=== PATIENT | female | born 1955 | race African-American/Black ===

== ENCOUNTER 2018-11-21 09:22 | Day surgery (SDC) | payer BC ==
[2018-11-20 13:47] VITALS: BMI 24.3
[2018-11-21 11:06] VITALS: TEMP 97.7
[2018-11-21 12:22] VITALS: BP 124/89; PULSE 53
--- NOTE | 2018-11-22 09:45 | PATH ---
Surgical Pathology Report Patient Name: LOLI PAPPAS [facility] Rec. #: [id number] /Age/Gender: 1955 (Age: 63) / F Account: [id number] Location: [facility]-ENDOSCOPY Taken: 11/21/2018 Received: 11/21/2018 Reported: 11/22/2018 Physicians: Alexandra Senior M.D. Specimen(s) Received A: DUODENUM B: GASTRIC ULCER BIOPSY C: GASTRIC FUNDUS POLYP D: ANTRUM E: RECTUM POLYP Clinical History Family history of gastric cancer, screening, constipation Postoperative diagnosis: Gastric ulcer, gastric fundic polyp, hiatal hernia, rectal polyp Final Diagnosis A. DUODENUM, SECOND PORTION AND BULB, BIOPSY: DUODENAL MUCOSA WITH NO PATHOLOGIC CHANGES. NO HISTOLOGIC EVIDENCE OF GLUTEN SENSITIVE ENTEROPATHY (CELIAC SPRUE) IDENTIFIED. B. STOMACH, GASTRIC ULCER, BIOPSY: MILD REACTIVE GASTROPATHY. IMMUNOSTAIN FOR H. PYLORI IS NEGATIVE. C. STOMACH, FUNDUS, BIOPSY: GASTRIC FUNDIC MUCOSA WITH NO PATHOLOGIC CHANGES. IMMUNOSTAIN FOR H. PYLORI IS NEGATIVE. D. STOMACH, ANTRUM, BIOPSY: GASTRIC ANTRAL AND FUNDIC MUCOSA WITH FOCAL MILD CHRONIC GASTRITIS. IMMUNOSTAIN FOR H. PYLORI IS NEGATIVE. E. COLON, RECTUM, BIOPSY: HYPERPLASTIC POLYP Electronically Signed Ted Hendrickson M.D. Gross Description A. Received in formalin, labeled "second portion and bulb of duodenum" are 3 brown, irregular portions of soft tissue ranging from 0.3-0.5 cm. in greatest dimension. The specimens are submitted in toto in one cassette. B. Received in formalin, labeled "gastric ulcer biopsy" are 3 brown, irregular portions of soft tissue averaging 0.3 cm. in greatest dimension. The specimens are submitted in toto in one cassette. C. Received in formalin, labeled "gastric fundus polyp biopsy" is a brown, irregular portion of soft tissue measuring 0.3 cm. in greatest dimension. The specimen is submitted in toto in one cassette. D. Received in formalin, labeled "antrum biopsy" are 2 brown, irregular portions of soft tissue measuring 0.2 and 0.6 cm. in greatest dimension. The specimens are submitted in toto in one cassette. E. Received in formalin, labeled "rectum polyp biopsy" is a brown, irregular portion of soft tissue measuring 0.6 cm. in greatest dimension. The specimen is submitted in toto in one cassette. 11/21/2018 [facility]11/21/2018
== END 2018-11-21 13:30 | disposition home or self-care (01) ==
LOC: JASU-ENDO 09:22
PROVIDERS: ATTEND Internal Medicine Gastroenterology
PROC: 0DB68ZX Excision of Stomach, Via Natural or Artificial Opening Endoscopic, Diagnostic (ICD-10-PCS; 2018-11-21)
PROC: 0DBP8ZX Excision of Rectum, Via Natural or Artificial Opening Endoscopic, Diagnostic (ICD-10-PCS; principal; 2018-11-21 10:30)
DX: Z12.11 Encounter for screening for malignant neoplasm of colon (principal); Z80.0 Family history of malignant neoplasm of digestive organs; K62.1 Rectal polyp; K64.8 Other hemorrhoids; K63.89 Other specified diseases of intestine; K31.7 Polyp of stomach and duodenum; K25.9 Gastric ulcer, unspecified as acute or chronic, without hemorrhage or perforation; K44.9 Diaphragmatic hernia without obstruction or gangrene; K29.50 Unspecified chronic gastritis without bleeding
CPT/HCPCS: 88305-TC; 88342-TC

== ENCOUNTER 2018-12-06 06:16 | Inpatient (IN) | payer BC ==
[2018-11-29 10:27] VITALS: BMI 23.5
[~2018-12-06 06:16] MED LIST: TRANEXAMIC ACID 1000 MG/10 ML VIAL IVPB ONE; VANCOMYCIN 1,000 MG VIAL (RESTRICTED TO ID ONLY) IVPB ONE
[2018-12-06] MEDS ORDERED: MIDAZOLAM HCL 2 MG/2 ML SINGLE DOSE VIAL ONE ×3 (06:54→08:47)
[2018-12-06] MEDS ORDERED: BUPIVACAINE LIPOSOME/PF (EXPAREL) 266 MG/20 ML VIAL ONE (06:54)
[2018-12-06] MEDS ORDERED: SODIUM CHLORIDE 0.9% P/F 10 ML VIAL IJ ONE (06:54)
[2018-12-06] MEDS ORDERED: TRANEXAMIC ACID 1000 MG/10 ML VIAL IVPUSH ONE (07:16)
[2018-12-06] MEDS ORDERED: CEFAZOLIN 2 GM/D5W 2 GM/50 ML ML IVPB ONE (07:16)
[2018-12-06] MEDS ORDERED: GABAPENTIN 300 MG CAPSULE (FP) PO ONE (07:16)
[2018-12-06] MEDS ORDERED: oxyCODONE HCL 10 MG SUSTAINED ACTING TABLET PO ONE (07:16)
[2018-12-06] MEDS ORDERED: PANTOPRAZOLE 40 MG TABLET (FP) PO ONE (07:17)
[2018-12-06] MEDS ORDERED: ceFAZolin SODIUM 1 GM VIAL ONE ×2 (07:19→08:26)
[2018-12-06] MEDS ORDERED: VANCOMYCIN 1,000 MG VIAL (RESTRICTED TO ID ONLY) ONE (07:19)
--- NOTE | 2018-12-06 07:38 | HP ---
Admitting History and Physical - Admission Chief Complaint: left knee osteoarthritis x years History of Present Illness: 63 year old female presents in regard to her left knee. Longstanding history of left knee osteoarthritis. Patient complains of pain, limited ROM, difficulty ambulating and difficulties with activities of daily living. Patient has failed conservative treatment options including PO medications, injections, activity modification and exercise programs. At this point, patient wishes to proceed with surgical intervention - left total knee arthroplasty, MAKOplasty. History Source: Patient - Past Medical History Cardiovascular: Yes: HTN Gastrointestinal: Yes: GERD ...: No - Past Surgical History Additional Past Surgical History: See written history & physical. - Smoking History Smoking history: Never smoked Have you smoked in the past 12 months: No - Alcohol/Substance Use Hx Alcohol Use: No Home Medications - Allergies Allergies/Adverse Reactions: Allergies Allergy/AdvReac Type Severity Reaction Status Date / Time No Known Allergies Allergy Verified 12/06/18 06:56 - Home Medications Home Medications: Ambulatory Orders Nadolol 40 mg PO DAILY 11/20/18 Topiramate 50 mg PO HS 11/20/18 Topiramate 100 mg PO DAILY 11/20/18 Pantoprazole Sodium 40 mg PO DAILY 11/29/18 Review of Systems - Review of Systems Musculoskeletal: reports: Crepitus (left knee), Decreased ROM (left knee), Joint Pain (left knee), Joint Swelling (left knee) Physical Examination Vital Signs: Vital Signs Temperature 97.7 F 12/06/18 06:57 Pulse Rate 50 L 12/06/18 06:57 Respiratory Rate 16 12/06/18 06:57 Blood Pressure 109/64 12/06/18 06:57 O2 Sat by Pulse Oximetry (%) 100 12/06/18 07:09 Constitutional: Yes: Well Nourished, No Distress Eyes: Yes: Conjunctiva Clear HENT: Yes: Atraumatic Neck: Yes: Supple Cardiovascular: Yes: Regular Rate and Rhythm Respiratory: Yes: Regular Gastrointestinal: Yes: Soft ...Rectal Exam: Yes: Deferred Musculoskeletal: Yes: Joint Stiffness (left knee), Joint Swelling (left knee) Assessment/Plan 63 year old female presents in regard to her left knee. Longstanding history of left knee osteoarthritis. Patient complains of pain, limited ROM, difficulty ambulating and difficulties with activities of daily living. Patient has failed conservative treatment options including PO medications, injections, activity modification and exercise programs. At this point, patient wishes to proceed with surgical intervention - left total knee arthroplasty, MAKOplasty. Pros, cons, risks, benefits and alternative of a left total knee arthroplasty, MAKOplasty were discussed with the patient at length. Patient confirms her understanding and consents to proceed with a left total knee arthroplasty, MAKOplasty.
[2018-12-06] MEDS ORDERED: ONDANSETRON 4 MG/2 ML VIAL ONE (08:26)
[2018-12-06] MEDS ORDERED: TRANEXAMIC ACID 1000 MG/10 ML VIAL ONE (08:26)
[2018-12-06] MEDS ORDERED: DEXAMETHASONE SOD PHOSPHATE 4 MG/1 ML VIAL ONE (08:26)
[2018-12-06] MEDS ORDERED: ePHEDrine SULFATE 50 MG/1 ML AMPULE ONE (08:39)
[2018-12-06] MEDS ORDERED: VANCOMYCIN 1,000 MG VIAL (RESTRICTED TO ID ONLY) IVPB ONE (10:30)
[2018-12-06] MEDS ORDERED: TRANEXAMIC ACID 1000 MG/10 ML VIAL IVPB ONE (10:40)
--- NOTE | 2018-12-06 11:35 | OP ---
Operative Note - Note: Operative Date: 12/06/18 Pre-Operative Diagnosis: left knee OA Operation: left JASON TKA Post-Operative Diagnosis: Same as Pre-op Surgeon: Jonah Araujo Custom Clothier: Priyanka Sargent Anesthesia: Spinal Estimated Blood Loss (mls): 100
[2018-12-06] MEDS ORDERED: ONDANSETRON 4 MG/2 ML VIAL IVPUSH PRN ×2 (11:44→12:26)
[2018-12-06] MEDS ORDERED: PROMETHAZINE HCL 25 MG/1 ML VIAL IVPUSH PRN (11:44)
[2018-12-06] MEDS ORDERED: oxyCODONE HCL 5 MG TABLET PO PRN ×2 (11:44)
[2018-12-06] MEDS ORDERED: ACETAMINOPHEN 1000 MG/100 ML VIAL (NON FORMULARY) IVPB ONE (11:45)
[2018-12-06] MEDS: traMADol HCL 50 MG TABLET PO SCH ×3 (12:00→23:04)
[2018-12-06] MEDS ORDERED: ACETAMINOPHEN INJECTION 100 ML IVPB ONE (12:03)
[2018-12-06] MEDS ORDERED: traMADol HCL 50 MG TABLET ONE (12:11)
[2018-12-06] MEDS ORDERED: MAG HYDROX/AL HYDROX/SIMETH 30 ML UNIT-DOSE CUP PO PRN (12:26)
[2018-12-06] MEDS ORDERED: MAGNESIUM HYDROX 2400MG/30ML ORAL SUSPENSION 30 ML CUP PO PRN (12:26)
[2018-12-06] MEDS ORDERED: LACTATED RINGERS SOLUTION 1,000 ML IV SCH (12:30)
[2018-12-06] MEDS: ACETAMINOPHEN 325 MG TABLET (FP) PO SCH ×2 (18:02→23:03)
[2018-12-06] MEDS: CEFAZOLIN 2 GM/D5W 2 GM/50 ML ML IVPB SCH (18:03)
[2018-12-06] MEDS ORDERED: DEXAMETHASONE SOD PHOSPHATE 10 MG/1 ML VIAL IVPB ONE (20:00)
[2018-12-06] MEDS: GABAPENTIN 300 MG CAPSULE (FP) PO SCH (21:15)
[2018-12-06] MEDS: ASCORBIC ACID 500 MG TABLET (FP) PO SCH (21:16)
[2018-12-06] MEDS: SENNOSIDES/DOCUSATE COMBO (SENNA PLUS) TABLET (UD) PO SCH (21:16)
[2018-12-06] MEDS: oxyCODONE HCL 10 MG SUSTAINED ACTING TABLET PO SCH (21:16)
[2018-12-06] MEDS: TOPIRAMATE 25 MG TABLET (FP) PO SCH (21:16)
[2018-12-07] MEDS: CEFAZOLIN 2 GM/D5W 2 GM/50 ML ML IVPB SCH (01:13)
[2018-12-07] MEDS: traMADol HCL 50 MG TABLET PO SCH ×3 (05:32→18:28)
[2018-12-07] MEDS: ACETAMINOPHEN 325 MG TABLET (FP) PO SCH ×3 (05:33→18:28)
[2018-12-07 08:06] LABS: HEMATOCRIT 35.9 % (32.4-45.2); HEMOGLOBIN 11.8 GM/dl (10.7-15.3); MCH 29.6 pg (25.7-33.7); MCHC 32.9 g/dl (32.0-36.0); MEAN CELL VOLUME 89.9 fl (80-96); MEAN PLT VOLUME 8.8 fl (7.5-11.1); PLATELET COUNT 269 K/MM3 (134-434); RDW 12.9 % (11.6-15.6); WHITE BLOOD COUNT 9.1 K/mm3 (4.0-10.8)
[2018-12-07 08:18] LABS: CALCIUM 8.4 mg/dl (8.5-10); POTASSIUM 4.3 mmol/L (3.5-5.1)
[2018-12-07] MEDS: SENNOSIDES/DOCUSATE COMBO (SENNA PLUS) TABLET (UD) PO SCH ×2 (10:00→21:51)
[2018-12-07] MEDS: ASPIRIN 325 MG ENTERIC COATED TABLET (FP) PO SCH (10:00)
[2018-12-07] MEDS ORDERED: PANTOPRAZOLE 40 MG TABLET (FP) PO SCH (10:00)
--- NOTE | 2018-12-07 10:21 | PN ---
Progress Note (short form) - Note Progress Note: ANESTHESIA POSTOP 63 YO FEMALE POD#1 S/P LTKA, SPINAL, NERVE BLOCKS Patient actively participating in PT. No complaints. Pain well controlled. VSS, Afebrile Continue current care, encouraged IS, No anesthetic complications
[2018-12-07] MEDS: GABAPENTIN 300 MG CAPSULE (FP) PO SCH ×2 (11:07→21:51)
[2018-12-07] MEDS: PANTOPRAZOLE 40 MG TABLET (FP) PO SCH (11:08)
[2018-12-07] MEDS: ASCORBIC ACID 500 MG TABLET (FP) PO SCH ×2 (11:08→21:51)
[2018-12-07] MEDS: oxyCODONE HCL 10 MG SUSTAINED ACTING TABLET PO SCH ×2 (11:09→21:52)
[2018-12-07] MEDS: NADOLOL 40 MG TABLET (FP) PO SCH (11:11)
[2018-12-07] MEDS: TOPIRAMATE 100 MG TABLET PO SCH (11:11)
[2018-12-07] MEDS: MULTIVITAMINS (DAILY MVI) TABLET (FP) PO SCH (11:11)
--- NOTE | 2018-12-07 20:34 | PN ---
Progress Note (short form) - Note Progress Note: Pt seen and examined. Doing well. Foot drop resolved. Selected Entries 12/07/18 12/07/18 14:20 20:13 Temperature 97.6 F Pulse Rate 51 L Respiratory 18 Rate Blood Pressure 97/55 L O2 Sat by Pulse 99 Oximetry (%) Oxygen Delivery Room Air Method Laboratory Tests 12/07/18 12/07/18 07:42 07:42 WBC 9.1 Hgb 11.8 Hct 35.9 Plt Count 269 Sodium 134 L Potassium 4.3 Chloride 109 H Carbon Dioxide 21 Anion Gap 4 L BUN 15.0 Creatinine 1.0 Random Glucose 152 H Calcium 8.4 L Gen: NAD LLE: c/d/i, NVID A/P POD#1 s/p L TKA PT/OOB D/C home in AM
--- NOTE | 2018-12-07 20:43 | DS ---
Physical Examination Vital Signs: Vital Signs Temperature 97.6 F 12/07/18 14:20 Pulse Rate 51 L 12/07/18 14:20 Respiratory Rate 18 12/07/18 14:20 Blood Pressure 97/55 L 12/07/18 14:20 O2 Sat by Pulse Oximetry (%) 99 12/07/18 14:20 Labs: CBC, BMP 12/07/18 07:42 12/07/18 07:42 Discharge Summary Reason For Visit: LEFT KNEE OSTEOARTHRITIS Current Active Problems Osteoarthritis of left knee (Acute) Procedures: Principal: left TKA Hospital Course: Admitted for elective surgery. Procedure performed without complications. Pt received postoperative antibiotic prophylaxis and DVT ppx. Ambulated with physical therapy. Stable for discharge home with outpatient followup. Condition: Stable - Instructions Diet, Activity, Other Instructions: Dr. Araujo - Knee Replacement Instructions Keep the Aquacel dressing on until removed by Dr. Araujo in 10-14 days - it is antibacterial and waterproof and you can shower with it on. Call the office for a follow-up appointment with Dr. Araujo in 10-14 days. Take TWO ENTERIC COATED BABY ASPIRINS (total 162mg) in the morning after breakfast and TWO ENTERIC COATED BABY ASPIRINS (total 162mg) in the evening after dinner for 6 weeks to prevent blood clots in your legs. Take one Pantoprazole 40mg daily for 6 weeks to protect against heartburn and ulcers. Take Cephalexin (antibiotic) 3x/day for 10 days to help prevent skin infection. Take a multivitamin, stool softener, and extra Vitamin C supplement daily. For pain: *Mild pain (1-3/10): Take 1 Tramadol tablet every 4 hours as needed. Moderate pain (4-6/10): Take 1 Tramadol tablet and 1 Percocet tablet every 4 hours as needed. Severe pain (7-10/10): Take 1 Tramadol tablet and 2 Percocet tablets every 4 hours as needed. Activity: You can put as much weight on the operative leg as you want. Right after you get home, there will be a physical therapist coming to your house to help you walk around and bend/straighten your knee. After your follow-up appointment, you will be sent for more intensive outpatient physical therapy which will include machines and equipment that the home therapist cannot bring to your house. Always use a walker or cane for balance and to prevent falls. Expect to see swelling/bruising/redness/warmth from the operative site all the way down to your toes. Postop swelling can last for several weeks to up to 6 months and will eventually resolve. Wear the compression stocking on the operative side during the day to minimize how much swelling there is in your foot/ankle. Don't wear the stocking at night. You don't have to wear a stocking on the other side. Disposition: [facility]NS/HOME HEALTH CARE - Home Medications Comprehensive Discharge Medication List: Ambulatory Orders Nadolol 40 mg PO DAILY 11/20/18 Topiramate 50 mg PO HS 11/20/18 Topiramate 100 mg PO DAILY 11/20/18 Pantoprazole Sodium 40 mg PO DAILY 11/29/18 Ascorbic Acid [Vitamin C -] 500 mg PO BID tablet 12/07/18 Aspirin Coated [Ecotrin -] 162 mg PO BID tablet. 12/07/18 Cephalexin Monohydrate [Keflex -] 500 mg PO TID #30 capsule 12/07/18 Multivitamins [Multivit ([facility] Formulary)] 1 tab PO DAILY tab 12/07/18 Oxycodone HCl/Acetaminophen [Percocet 5-325 mg Tablet] 1 - 2 tab PO Q4H PRN #60 tablet MDD 10 12/07/18 Sennosides/Docusate Sodium [Pericolace -] 2 tablet PO BID tablet 12/07/18 traMADol HCL [Ultram -] 50 mg PO Q4H PRN #42 tablet MDD 6 12/07/18
[2018-12-07] MEDS: TOPIRAMATE 25 MG TABLET (FP) PO SCH (21:51)
[2018-12-08] MEDS: traMADol HCL 50 MG TABLET PO SCH ×3 (00:18→12:28)
[2018-12-08] MEDS: ACETAMINOPHEN 325 MG TABLET (FP) PO SCH ×3 (00:19→12:29)
[2018-12-08 07:07] VITALS: PULSE 66
[2018-12-08 08:26] LABS: HEMATOCRIT 32.4 % (32.4-45.2); HEMOGLOBIN 10.2 GM/dl (10.7-15.3); MCH 28.1 pg (25.7-33.7); MCHC 31.5 g/dl (32.0-36.0); MEAN CELL VOLUME 89.1 fl (80-96); MEAN PLT VOLUME 8.9 fl (7.5-11.1); PLATELET COUNT 232 K/MM3 (134-434); RBC 3.64 M/mm3 (3.60-5.2); RDW 12.7 % (11.6-15.6); WHITE BLOOD COUNT 7.9 K/mm3 (4.0-10.8)
[2018-12-08] MEDS ORDERED: NADOLOL 20 MG TABLET (FP) ONE (09:51)
[2018-12-08] MEDS: ASPIRIN 325 MG ENTERIC COATED TABLET (FP) PO SCH (09:53)
[2018-12-08] MEDS: NADOLOL 40 MG TABLET (FP) PO SCH (09:54)
[2018-12-08] MEDS: GABAPENTIN 300 MG CAPSULE (FP) PO SCH (09:54)
[2018-12-08] MEDS: SENNOSIDES/DOCUSATE COMBO (SENNA PLUS) TABLET (UD) PO SCH (09:55)
[2018-12-08] MEDS: oxyCODONE HCL 10 MG SUSTAINED ACTING TABLET PO SCH (09:55)
[2018-12-08] MEDS: MULTIVITAMINS (DAILY MVI) TABLET (FP) PO SCH (09:56)
[2018-12-08] MEDS: PANTOPRAZOLE 40 MG TABLET (FP) PO SCH (09:56)
[2018-12-08] MEDS: ASCORBIC ACID 500 MG TABLET (FP) PO SCH (09:57)
[2018-12-08] MEDS: TOPIRAMATE 100 MG TABLET PO SCH (10:52)
[2018-12-08 13:44] VITALS: BP 105/69; TEMP 98.9
--- NOTE | 2018-12-11 16:17 | PATH ---
Surgical Pathology Report Patient Name: LOLI PAPPAS Med. Rec. #: [id number] /Age/Gender: 1955 (Age: 63) / F Account: [id number] Location: [facility]-SURG Taken: 12/06/2018 Received: 12/06/2018 Reported: 12/11/2018 Physicians: Jonah Araujo M.D. Specimen(s) Received BONE LEFT KNEE Clinical History Left knee osteoarthritis Final Diagnosis BONE, LEFT KNEE, TOTAL KNEE REPLACEMENT: DEGENERATIVE JOINT DISEASE. Electronically Signed Raine Lock M.D. Gross Description Received in formalin labeled "bone left knee," is a 12.0 x 10.0 x 2.0 cm aggregate of multiple portions of bone and soft tissue. The tibial plateau measures 8.3 x 5.3 x 1.4 cm. There is a 3.1 cm greatest dimension area of eburnation present. The remaining articular surfaces are brown-brown and diffusely granular. The underlying trabecular bone is yellow and hard. [employer] sections are submitted in one cassette, following decalcification. /12/06/2018 [facility]12/06/2018
--- NOTE | 2018-12-18 01:15 | SPEC ---
DATE OF OPERATION: 12/06/2018 PREOPERATIVE DIAGNOSIS: Left knee osteoarthritis. POSTOPERATIVE DIAGNOSIS: Left knee osteoarthritis. PROCEDURE: Left total knee replacement with MAKOplasty robotic navigation. ATTENDING: Jonah Araujo MD AUTOMOTIVE AIRCONDITIONING MECHANIC: VIPUL Romero ANESTHESIA: Spinal plus sedation. ESTIMATED BLOOD LOSS: 100 mL. COMPLICATIONS: None. DISPOSITION: The patient was transferred to the PACU in stable condition. IMPLANTS USED: Carola cementless Triathlon size 6 femoral component, cementless size 5 tibial component, 11-mm posterior-stabilized polyethylene component, 32-mm patellar component. INDICATIONS: This was a 63-year-old female who presents to the office complaining of severe left knee pain. She was seen and examined by Dr. Araujo and diagnosed with severe left knee osteoarthritis. The patient was initially treated nonoperatively with injections, medications, and physical therapy, but continued to have severe pain and ambulatory dysfunction. She was therefore indicated for left total knee replacement with MAKOplasty robotic navigation. The risks, benefits, and alternatives to the procedure were explained to the patient in great detail. She elected to proceed with surgery. DESCRIPTION OF PROCEDURE: On the day of surgery, the patient was taken to the operating room and placed on the OR table. Spinal anesthesia was administered by the anesthesiologist. The patient was then positioned supine on the table and all bony prominences were padded. The knee was then prepped and draped in the usual sterile fashion and intravenous antibiotics were given for infection prophylaxis. A surgical time-out was then performed with the team, and the patients identity, procedure, side, availability of implants, and the administration of antibiotics was confirmed. With the knee flexed, a midline incision was made and carried down through the subcutaneous fat to the underlying retinaculum. A medial parapatellar arthrotomy was performed. This was followed by a subperiosteal dissection of the tissue off the proximal, medial tibia. A portion of fat pad was removed from under the patellar tendon, and a small portion of fat was excised off the distal supracondylar femur. Electrocautery and an Waspitamantys bipolar sealing device were used to achieve hemostasis. The knee was then flexed further and the anterior horn of the lateral meniscus was released from the midline. Next, the anterior and posterior cruciate ligaments were transected. Grade 4 changes were noted diffusely throughout the knee. Femoral and tibial checkpoints were then placed in the appropriate location using a mallet. Two parallel bicortical self-drilling pins were placed in the tibial diaphysis after making stab incisions and bluntly dissecting down to bone. Two pins were then placed in the distal supracondylar femur. The [employer] navigation arrays were then attached to both the femoral and tibial pins and the lower extremity was then registered to the robotic navigation device using various joint movements, as well as inputting several dozen reference points. The knee was then taken through a full range of motion with a corrective force applied. Alignment in varus/valgus as well as flexion/extension and soft tissue balance was measured in various positions. The navigation device showed a numerical and graphic representation of the soft tissue balance. The components were repositioned virtually using the software until optimal soft tissue balance was achieved on screen. Once this was accomplished, the final plan was saved and sent to the robot. Self-retaining retractors were then placed at the joint line for exposure and protection of the collateral ligaments. The robot was brought into the sterile field and registered with the navigation device. The robotic arm with attached oscillating saw blade was then used to perform femoral and tibial bone cuts as per the saved software plan. The femoral box cut was made using the appropriately sized manual cutting guide. The knee was then irrigated. Trial components were placed and the knee was taken through a full range of motion to assess soft tissue balance and alignment. The range of motion was found to be excellent and the soft tissue balance was optimal and according to plan. The knee was then put into extension and the patella everted. The synovium around the patella was circumscribed with electrocautery. A caliper was used to measure the patellar thickness and a saw was then used to resect the patella at the chondro-osseous junction. The cut surface was then sized and drilled for the appropriate patellar button, with care taken to medialize it. A trial patella was then placed and the knee was again taken through a full range of motion. The knee was found to have both good balance and good patellar tracking. All of the components were removed except the tibial base plate. The appropriate instrumentation was used to drill and punch the proximal tibia for the keel of the final component. All bony surfaces were then cleaned with pulsatile lavage and dried. Cementless Carola Triathlon knee replacement components were then impacted in place and found to have a stable press-fit. A trial polyethylene component was placed and the knee was again taken through a full range of motion to assess stability, balance, and patellar tracking. This was found to be optimal and the trial polyethylene was exchanged for the appropriately sized real implant. The wound was then thoroughly irrigated with normal saline. A 3-minute dilute Betadine lavage was performed. The knee was again irrigated using a pulsatile lavage device. A periarticular injection was used to locally infiltrate the capsular tissues surrounding the implant and prosthesis. Then No. 1 Polysorb and 0 VLoc 180 barbed sutures were used to close the arthrotomy. Then No. 1 Polysorb and 2-0 VLoc 90 sutures were used in the subcutaneous tissues. Then 4-0 undyed Vicryl and Dermabond skin adhesive was used to close the stab incisions made for the navigation pins. The skin was closed using both 3-0 VLoc 90 suture in a running subcuticular fashion and Dermabond skin adhesive. Once this was completed a sterile Aquacel dressing and compressive Shahram-wrap was applied. The patient was then awakened and taken to the PACU in stable condition. [place] [id number]
== END 2018-12-08 13:47 | disposition home health service (06) | DRG 470 ==
LOC: FM/S 06:16
PROVIDERS: ADMIT Student in an Organized Health Care Education/Training Program; ATTEND Student in an Organized Health Care Education/Training Program
PROC: 8E0Y0CZ Robotic Assisted Procedure of Lower Extremity, Open Approach (ICD-10-PCS; 2018-12-06)
PROC: 0SRD0JZ Replacement of Left Knee Joint with Synthetic Substitute, Open Approach (ICD-10-PCS; principal; 2018-12-06 08:49)
DX: M17.12 Unilateral primary osteoarthritis, left knee (principal); I10 Essential (primary) hypertension; K21.9 Gastro-esophageal reflux disease without esophagitis
CPT/HCPCS: 36415; 73560-TC-LT-FY; 80048; 85027; 88304-TC; 88311-TC; 94760; 97116-GP; 97163-GP; J0131; J1100

== ENCOUNTER 2019-03-18 08:07 | Day surgery (SDC) | payer BC ==
[2019-03-18 08:39] VITALS: BMI 21.7
[2019-03-18 09:32] VITALS: TEMP 98.8
[2019-03-18 11:27] VITALS: BP 115/72; PULSE 56
--- NOTE | 2019-03-19 17:48 | PATH ---
Surgical Pathology Report Patient Name: LOLI PAPPAS [facility]. Rec. #: [id number] /Age/Gender: 1955 (Age: 64) / F Account: [id number] Location: [facility]-ENDOSCOPY Taken: 03/18/2019 Received: 03/18/2019 Reported: 03/19/2019 Physicians: Alexandra Senior M.D. Specimen(s) Received A: ANTRUM B: POLYPS Clinical History History gastric ulcer Postoperative diagnosis: Gastritis, healed gastric ulcer, fundic polyps Final Diagnosis A. STOMACH, ANTRUM, BIOPSY: GASTRIC ANTRAL MUCOSA WITH MILD CHRONIC GASTRITIS. IMMUNOHISTOCHEMICAL STAIN FOR H. PYLORI IS NEGATIVE. B. GASTRIC FUNDIC POLYPS, BIOPSY: POLYPOID GASTRIC MUCOSA WITH MILD CHRONIC INFLAMMATION AND RARE MILDLY DILATED GLANDS IMMUNOHISTOCHEMICAL STAIN FOR H. PYLORI IS NEGATIVE. Electronically Signed Johanny Capone M.D. Gross Description A. Received in formalin, labeled "antrum" are 2 brown, irregular portions of soft tissue measuring 0.1 and 0.3 cm. in greatest dimension. The specimens are submitted in toto in one cassette. B. Received in formalin, labeled "gastric fundic polyps" are 4 brown, irregular portions of soft tissue ranging in size from 0.1-0.4 cm. in greatest dimension. The specimens are submitted in toto in one cassette. [facility]/03/18/2019 [facility]/03/18/2019
== END 2019-03-18 10:30 | disposition home or self-care (01) ==
LOC: JASU-ENDO 08:07
PROVIDERS: ATTEND Internal Medicine Gastroenterology
PROC: 0DB68ZX Excision of Stomach, Via Natural or Artificial Opening Endoscopic, Diagnostic (ICD-10-PCS; principal; 2019-03-18 08:45)
DX: K21.9 Gastro-esophageal reflux disease without esophagitis (principal); K44.9 Diaphragmatic hernia without obstruction or gangrene; K31.7 Polyp of stomach and duodenum; K29.70 Gastritis, unspecified, without bleeding
CPT/HCPCS: 88305-TC; 88342-TC

== ENCOUNTER 2021-09-13 07:23 | Emergency (ER) | payer OTHER ==
[2021-09-13 07:39] VITALS: BMI 25.8
[2021-09-13] MEDS ORDERED: SODIUM CHLORIDE 0.9% 500 ML INFUS.BAG IV ONE (08:31)
[2021-09-13] MEDS ORDERED: MECLIZINE HCL 25 MG TABLET (FP) PO ONE (08:33)
[2021-09-13] MEDS ORDERED: METOCLOPRAMIDE HCL INJECTION 10 MG/2 ML VIAL IVPB ONE (08:33)
[2021-09-13] MEDS ORDERED: METOCLOPRAMIDE HCL INJECTION 10 MG/2 ML VIAL ONE (08:36)
[2021-09-13] MEDS ORDERED: MECLIZINE HCL 25 MG TABLET (FP) ONE (08:36)
[2021-09-13 09:22] LABS: BASO % 0.1 % (0-2.0); HEMATOCRIT 40.9 % (32.4-45.2); HEMOGLOBIN 13.4 GM/dL (10.7-15.3); LYMPH % 6.3 % (8-40); MCH 29.5 pg (25.7-33.7); MCHC 32.7 g/dl (32.0-36.0); MEAN PLT VOLUME 8.9 fl (7.5-11.1); MONO % 4.3 % (3.8-10.2); NEUT % 89.3 % (42.8-82.8); PLATELET COUNT 238 10^3/uL (134-434); RBC 4.54 M/mm3 (3.60-5.2); RDW 13.3 % (11.6-15.6); WHITE BLOOD COUNT 8.9 K/mm3 (4.0-10.0)
[2021-09-13 09:51] LABS: ALBUMIN 3.8 g/dl (3.4-5.0); BLOOD UREA NITROGEN 14.6 mg/dL (7-18); CALCIUM 9.3 mg/dL (8.5-10.1)
[2021-09-13 09:54] LABS: CREATININE 0.9 mg/dL (0.55-1.3)
[2021-09-13 09:56] LABS: BILIRUBIN,TOTAL 0.5 mg/dL (0.2-1); TOT PROT 7.3 g/dl (6.4-8.2)
[2021-09-13 09:57] LABS: CHOLESTEROL 182 mg/dL (50-200); TRIGLYCERIDES 88 mg/dL (0-150)
[2021-09-13 09:58] LABS: LDL CHOLESTEROL (ONLY SJRH) 86 mg/dL (5-100)
[2021-09-13 10:00] LABS: HDL CHOLESTEROL 73 mg/dL (40-60)
[2021-09-13 13:21] VITALS: BP 110/68; PULSE 86; TEMP 98.6
== END 2021-09-13 13:22 | disposition home or self-care (01) ==
LOC: JER 07:23
PROC: 3E0333Z Introduction of Anti-inflammatory into Peripheral Vein, Percutaneous Approach (ICD-10-PCS; principal; 2021-09-13)
DX: R42 Dizziness and giddiness (principal)
CPT/HCPCS: 36415; 80053; 80061; 85025; 96374; 99284-25

== ENCOUNTER 2021-10-26 10:04 | Day surgery (SDC) | payer OTHER ==
[2021-10-13 11:39] VITALS: BMI 26.4
[~2021-10-26 10:04] MED LIST changes: +BUPIVACAINE HCL 50 ML ONE; +BUPIVACAINE HCL/PF 0.5% (5 MG/ML) 30 ML VIAL IJ ONE; +BUPIVACAINE LIPOSOME/PF (EXPAREL) 266 MG/20 ML VIAL ONE; +CEFAZOLIN 2 GM in DEXTROSE 5%-WATER - 50 ML IVPB ONE; +CELECOXIB 200 MG CAPSULE ONE; +CELECOXIB 200 MG CAPSULE PO ONE; +DEXAMETHASONE SOD PHOSPHATE 4 MG/1 ML VIAL ONE; +KETOROLAC TROMETHAMINE 30 MG/1 ML VIAL ONE; +LACTATED RINGERS SOLUTION 1,000 ML IV SCH; +MAG HYDROX/AL HYDROX/SIMETH 30 ML UNIT-DOSE CUP PO PRN; +MIDAZOLAM HCL 2 MG/2 ML SINGLE DOSE VIAL ONE; +ONDANSETRON 4 MG/2 ML VIAL IVPUSH PRN; +ONDANSETRON 4 MG/2 ML VIAL ONE; +PHENYLEPHRINE HCL 10 MG/1 ML SINGLE DOSE VIAL ONE; +PROPOFOL 20 ML ONE; +RIZATRIPTAN BENZOATE 10 MG PO PRN; +ROCURONIUM BROMIDE 50 MG/5 ML SYRINGE ONE; -TRANEXAMIC ACID 1000 MG/10 ML VIAL IVPB ONE; +TRANEXAMIC ACID 1000 MG/10 ML VIAL IVPUSH ONE; +TRANEXAMIC ACID 1000 MG/10 ML VIAL ONE; -VANCOMYCIN 1,000 MG VIAL (RESTRICTED TO ID ONLY) IVPB ONE; +VANCOMYCIN 1,000 MG VIAL (RESTRICTED TO ID ONLY) ONE; +ceFAZolin SODIUM 1 GM VIAL ONE
[2021-10-26] MEDS ORDERED: ACETAMINOPHEN INJECTION 100 ML IVPB ONE (10:11)
[2021-10-26] MEDS ORDERED: oxyCODONE HCL 5 MG TABLET PO PRN (10:36)
[2021-10-26] MEDS ORDERED: ONDANSETRON 4 MG/2 ML VIAL IVPUSH PRN (10:36)
[2021-10-26] MEDS ORDERED: LACTATED RINGERS SOLUTION 1,000 ML IV SCH (10:45)
[2021-10-26] MEDS: ACETAMINOPHEN 1000 MG/100 ML BAG IVPB ONE ×2 (10:58→12:02)
[2021-10-26] MEDS ORDERED: KETOROLAC TROMETHAMINE 30 MG/1 ML VIAL IVPUSH SCH (12:00)
[2021-10-26] MEDS: MULTIVITAMINS (DAILY MVI) TABLET (FP) PO SCH (12:01)
[2021-10-26] MEDS: SENNOSIDES/DOCUSATE COMBO (SENNA PLUS) TABLET (UD) PO SCH ×2 (12:01→21:37)
[2021-10-26] MEDS: PANTOPRAZOLE 40 MG TABLET PO SCH (12:01)
[2021-10-26] MEDS: TOPIRAMATE 100 MG TABLET PO SCH (12:02)
[2021-10-26] MEDS: KETOROLAC TROMETHAMINE 30 MG/1 ML VIAL IVPUSH SCH ×3 (15:13→20:58)
[2021-10-26] MEDS ORDERED: ceFAZolin SODIUM 1 GM VIAL ONE ×2 (16:23→23:22)
[2021-10-26] MEDS ORDERED: DEXTROSE 5%-WATER - 50 ML IVPB ONE ×2 (16:23→23:22)
[2021-10-26] MEDS: CEFAZOLIN 2 GM in DEXTROSE 5%-WATER - 50 ML IVPB SCH (16:29)
[2021-10-26] MEDS: ACETAMINOPHEN 500 MG TABLET (FP) PO SCH (17:34)
[2021-10-26] MEDS: oxyCODONE HCL 5 MG TABLET PO PRN (18:16)
[2021-10-26] MEDS: oxyCODONE HCL 10 MG SUSTAINED ACTING TABLET PO SCH (21:38)
[2021-10-27] MEDS: CEFAZOLIN 2 GM in DEXTROSE 5%-WATER - 50 ML IVPB SCH (00:33)
[2021-10-27] MEDS: ACETAMINOPHEN 500 MG TABLET (FP) PO SCH ×4 (00:33→17:08)
[2021-10-27] MEDS: oxyCODONE HCL 5 MG TABLET PO PRN (05:02)
[2021-10-27 08:36] LABS: HEMATOCRIT 36.1 % (32.4-45.2); HEMOGLOBIN 12.2 G/dL (10.7-15.3); MCH 30.2 pg (25.7-33.7); MCHC 33.8 g/dl (32.0-36.0); MEAN CELL VOLUME 89.4 fl (80-96); PLATELET COUNT 242.8 10^3/uL (134-434); RBC 4.04 10^6/uL (3.60-5.2); RDW 14.5 % (11.6-15.6); WHITE BLOOD COUNT 8.7 10^3/uL (4.0-10.8)
[2021-10-27] MEDS: ASPIRIN 325 MG TABLET PO SCH (08:38)
[2021-10-27] MEDS: SENNOSIDES/DOCUSATE COMBO (SENNA PLUS) TABLET (UD) PO SCH ×2 (10:30→21:34)
[2021-10-27] MEDS: MULTIVITAMINS (DAILY MVI) TABLET (FP) PO SCH (10:31)
[2021-10-27] MEDS: oxyCODONE HCL 10 MG SUSTAINED ACTING TABLET PO SCH ×2 (10:31→21:34)
[2021-10-27] MEDS: TOPIRAMATE 100 MG TABLET PO SCH (10:31)
[2021-10-27] MEDS: PANTOPRAZOLE 40 MG TABLET PO SCH (10:31)
[2021-10-28 08:07] LABS: HEMATOCRIT 33.8 % (32.4-45.2); HEMOGLOBIN 11.1 G/dL (10.7-15.3); MCH 29.5 pg (25.7-33.7); MCHC 32.8 g/dl (32.0-36.0); MEAN CELL VOLUME 89.8 fl (80-96); MEAN PLT VOLUME 8.9 fl (7.5-11.1); PLATELET COUNT 230.2 10^3/uL (134-434); RBC 3.76 10^6/uL (3.60-5.2); RDW 14.6 % (11.6-15.6)
[2021-10-28] MEDS: MULTIVITAMINS (DAILY MVI) TABLET (FP) PO SCH (10:02)
[2021-10-28] MEDS: TOPIRAMATE 100 MG TABLET PO SCH (10:02)
[2021-10-28] MEDS: ASPIRIN 325 MG TABLET PO SCH (10:02)
[2021-10-28] MEDS: SENNOSIDES/DOCUSATE COMBO (SENNA PLUS) TABLET (UD) PO SCH (10:04)
[2021-10-28] MEDS: PANTOPRAZOLE 40 MG TABLET PO SCH (10:04)
[2021-10-28] MEDS: oxyCODONE HCL 10 MG SUSTAINED ACTING TABLET PO SCH (10:05)
[2021-10-28 14:35] VITALS: BP 98/53; PULSE 71; TEMP 99.5
[2021-10-28] MEDS: oxyCODONE HCL 5 MG TABLET PO PRN (14:36)
[2021-10-28] MEDS: ACETAMINOPHEN 500 MG TABLET (FP) PO SCH (14:37)
== END 2021-10-28 16:17 | disposition home or self-care (01) ==
LOC: FASUSAT 10:04 → FM/S 10:05 → EDSTATUS 10:30 → FM/S 11:34 → FASUSAT 10-28 16:17
PROVIDERS: ATTEND Orthopaedic Surgery
PROC: 8E0YXBZ Computer Assisted Procedure of Lower Extremity (ICD-10-PCS; 2021-10-26)
PROC: 8E0Y0CZ Robotic Assisted Procedure of Lower Extremity, Open Approach (ICD-10-PCS; 2021-10-26)
PROC: 0SRC0J9 Replacement of Right Knee Joint with Synthetic Substitute, Cemented, Open Approach (ICD-10-PCS; principal; 2021-10-26 08:50)
DX: M17.11 Unilateral primary osteoarthritis, right knee (principal); I10 Essential (primary) hypertension; K21.9 Gastro-esophageal reflux disease without esophagitis; G43.909 Migraine, unspecified, not intractable, without status migrainosus
CPT/HCPCS: 20985; 27447; C1776; S2900; 36415; 73560-TC-RT-FY; 85027; 94760; 97010-GP; 97116-GP; 97161-GP

== ENCOUNTER 2022-05-23 06:29 | Emergency (ER) | payer OTHER ==
[2022-05-23 07:02] VITALS: BP 133/80; PULSE 67; RESP 20; TEMP 97.4; BMI 26.6
[2022-05-23] MEDS ORDERED: LACTATED RINGERS SOLUTION 1000 ML INFUS.BAG IV ONE (07:35)
[2022-05-23] MEDS ORDERED: MECLIZINE HCL 25 MG TABLET (FP) PO ONE ×2 (07:35→10:44)
[2022-05-23] MEDS ORDERED: ONDANSETRON 4 MG/2 ML VIAL IVPUSH ONE (07:35)
[2022-05-23] MEDS ORDERED: MECLIZINE HCL 25 MG TABLET (FP) ONE ×2 (08:08→10:50)
[2022-05-23] MEDS ORDERED: ONDANSETRON 4 MG/2 ML VIAL ONE (08:09)
[2022-05-23 08:58] LABS: BASO % 0.7 % (0-2.0); EOS % 0.6 % (0-4.5); HEMATOCRIT 40.2 % (32.4-45.2); HEMOGLOBIN 12.9 GM/dL (10.7-15.3); LYMPH % 28.3 % (8-40); MCH 27.6 pg (25.7-33.7); MEAN CELL VOLUME 86.2 fl (80-96); MEAN PLT VOLUME 9.1 fl (7.5-11.1); MONO % 8.8 % (3.8-10.2); NEUT % 61.6 % (42.8-82.8); PLATELET COUNT 318 10^3/uL (134-434); RBC 4.66 M/mm3 (3.60-5.2); WHITE BLOOD COUNT 3.7 K/mm3 (4.0-10.0)
[2022-05-23 09:44] LABS: CHLORIDE 105 mmol/L (98-107); SODIUM 139 mmol/L (136-145)
[2022-05-23 09:47] LABS: ALBUMIN 3.5 g/dl (3.4-5.0); CALCIUM 9.2 mg/dL (8.5-10.1); CO2 28 mmol/L (21-32)
[2022-05-23 09:48] LABS: BLOOD UREA NITROGEN 11.6 mg/dL (7-18); GLUCOSE,RANDOM 154 mg/dL (74-106); MAGNESIUM 2.1 mg/dL (1.8-2.4)
[2022-05-23 09:51] LABS: SGOT/AST 70 U/L (15-37); SGPT/ALT 29 U/L (13-61)
[2022-05-23 09:52] LABS: BILIRUBIN,TOTAL 0.4 mg/dL (0.2-1); TOT PROT 7.3 g/dl (6.4-8.2)
[2022-05-23 09:53] LABS: ALK PHOS 81 U/L (45-117)
[2022-05-23 10:00] LABS: ANION GAP 6 MMOL/L (8-16)
[2022-05-23 11:03] LABS: PH,URINE 6.5 (5.0-8.0); URINE APPEARANCE CLEAR; URINE BILIRUBIN NEGATIVE (NEGATIVE); URINE COLOR YELLOW; URINE GLUCOSE (UA) NEGATIVE (NEGATIVE); URINE KETONE TRACE (NEGATIVE); URINE LEUK ESTERASE NEGATIVE (NEGATIVE); URINE NITRITE NEGATIVE (NEGATIVE); URINE PROTEIN NEGATIVE (NEGATIVE); URINE UROBILINOGEN 0.2 mg/dL (0.2-1.0)
[2022-05-23 12:17] LABS: BLOOD UREA NITROGEN 10.7 mg/dL (7-18); CALCIUM 9.3 mg/dL (8.5-10.1)
[2022-05-23 12:19] LABS: CREATININE 0.8 mg/dL (0.55-1.3)
== END 2022-05-23 14:45 | disposition home or self-care (01) ==
LOC: JER 06:29
PROC: 3E033GC Introduction of Other Therapeutic Substance into Peripheral Vein, Percutaneous Approach (ICD-10-PCS; principal; 2022-05-23)
DX: R42 Dizziness and giddiness (principal)
CPT/HCPCS: 36415; 70450-TC; 71045-TC-FY; 72125-TC; 80048; 80053; 81003; 83735; 84484; 85025; 87077; 87086; 87186; 93005; 93010; 99285-25

== ENCOUNTER 2022-09-13 03:50 | Day surgery (SDC) | payer OTHER ==
[2022-09-13 09:05] VITALS: RESP 20; BMI 24.7
[2022-09-13] MEDS ORDERED: MIDAZOLAM HCL 2 MG/2 ML SINGLE DOSE VIAL ONE (11:14)
[2022-09-13] MEDS ORDERED: ELECTROLYTE-148 SOLN 1,000 ML IV SCH (11:15)
[2022-09-13 14:11] VITALS: TEMP 98.7
[2022-09-13 14:12] VITALS: BP 114/79; PULSE 60
== END 2022-09-13 12:50 | disposition home or self-care (01) ==
LOC: JASU-SURG 03:50
PROVIDERS: ATTEND Urology
PROC: 0TF4XZZ Fragmentation in Left Kidney Pelvis, External Approach (ICD-10-PCS; principal; 2022-09-13 10:45)
DX: N20.0 Calculus of kidney (principal)

== ENCOUNTER 2023-01-02 09:19 | Emergency (ER) | payer OTHER ==
[2023-01-02 09:26] VITALS: RESP 18; TEMP 98.7; BMI 25.0
[2023-01-02] MEDS ORDERED: SODIUM CHLORIDE 0.9% 500 ML INFUS.BAG IV ONE (10:23)
[2023-01-02] MEDS ORDERED: ONDANSETRON 4 MG/2 ML VIAL IVPUSH ONE (10:23)
[2023-01-02] MEDS ORDERED: MECLIZINE HCL 25 MG TABLET (FP) PO ONE (10:23)
[2023-01-02] MEDS ORDERED: MECLIZINE HCL 25 MG TABLET (FP) ONE (10:40)
[2023-01-02] MEDS ORDERED: ONDANSETRON 4 MG/2 ML VIAL ONE (10:41)
[2023-01-02 11:25] LABS: BASO % 0.8 % (0-2.0); EOS % 1.1 % (0-4.5); HEMATOCRIT 39.1 % (32.4-45.2); HEMOGLOBIN 12.5 GM/dL (10.7-15.3); MCH 28.3 pg (25.7-33.7); MCHC 31.9 g/dl (32.0-36.0); MEAN CELL VOLUME 88.6 fl (80-96); MEAN PLT VOLUME 8.9 fl (7.5-11.1); MONO % 8.5 % (3.8-10.2); NEUT % 50.6 % (42.8-82.8); PLATELET COUNT 227 10^3/uL (134-434); RBC 4.41 M/mm3 (3.60-5.2); RDW 13.7 % (11.6-15.6); WHITE BLOOD COUNT 2.7 K/mm3 (4.0-10.0)
[2023-01-02 11:44] LABS: POTASSIUM 4.4 mmol/L (3.5-5.1)
[2023-01-02 11:46] LABS: ALBUMIN 3.2 g/dl (3.4-5.0); CALCIUM 8.9 mg/dL (8.5-10.1)
[2023-01-02 11:50] LABS: BILIRUBIN,TOTAL 0.4 mg/dL (0.2-1)
[2023-01-02 11:51] LABS: TOT PROT 6.6 g/dl (6.4-8.2)
[2023-01-02 12:54] VITALS: BP 111/63; PULSE 52
== END 2023-01-02 12:56 | disposition home or self-care (01) ==
LOC: JER 09:19
PROC: 3E033GC Introduction of Other Therapeutic Substance into Peripheral Vein, Percutaneous Approach (ICD-10-PCS; principal; 2023-01-02)
DX: R42 Dizziness and giddiness (principal); G43.909 Migraine, unspecified, not intractable, without status migrainosus; R11.2 Nausea with vomiting, unspecified; R61 Generalized hyperhidrosis
CPT/HCPCS: 36415; 80053; 84484; 85025; 93005; 93010; 99284-25

== ENCOUNTER 2023-11-28 04:17 | Day surgery (SDC) | payer OTHER ==
[2023-11-24 08:35] VITALS: BMI 26.8
[2023-11-28 08:46] VITALS: TEMP 98.4
[2023-11-28 09:12] VITALS: RESP 18
[2023-11-28 09:24] VITALS: BP 118/67; PULSE 59
== END 2023-11-28 09:35 | disposition home or self-care (01) ==
LOC: JASU-ENDO 04:17
PROVIDERS: ATTEND Internal Medicine Gastroenterology
PROC: 0DBL8ZX Excision of Transverse Colon, Via Natural or Artificial Opening Endoscopic, Diagnostic (ICD-10-PCS; 2023-11-28)
PROC: 0DB98ZX Excision of Duodenum, Via Natural or Artificial Opening Endoscopic, Diagnostic (ICD-10-PCS; 2023-11-28)
PROC: 0DB78ZX Excision of Stomach, Pylorus, Via Natural or Artificial Opening Endoscopic, Diagnostic (ICD-10-PCS; 2023-11-28)
PROC: 0DB68ZX Excision of Stomach, Via Natural or Artificial Opening Endoscopic, Diagnostic (ICD-10-PCS; 2023-11-28)
PROC: 0DB48ZX Excision of Esophagogastric Junction, Via Natural or Artificial Opening Endoscopic, Diagnostic (ICD-10-PCS; 2023-11-28)
PROC: 0DBP8ZX Excision of Rectum, Via Natural or Artificial Opening Endoscopic, Diagnostic (ICD-10-PCS; principal; 2023-11-28 08:00)
DX: Z12.11 Encounter for screening for malignant neoplasm of colon (principal); D12.8 Benign neoplasm of rectum; K63.5 Polyp of colon; K64.8 Other hemorrhoids; K57.30 Diverticulosis of large intestine without perforation or abscess without bleeding; K44.9 Diaphragmatic hernia without obstruction or gangrene; K21.00 Gastro-esophageal reflux disease with esophagitis, without bleeding; K29.50 Unspecified chronic gastritis without bleeding; K31.7 Polyp of stomach and duodenum; Z87.11 Personal history of peptic ulcer disease; Z80.0 Family history of malignant neoplasm of digestive organs
CPT/HCPCS: 88305-TC; 88342-TC